=== PATIENT | male | born 1965 | race Caucasian/White ===

== ENCOUNTER 2019-07-14 07:41 | Day surgery (SDC) | payer OTHER ==
[~2019-07-14] VITALS: Ht 180.3 cm; Wt 74.3 kg
[~2019-07-14 07:41] MED LIST: BUPIVACAINE/PF-EPI 0.5% 1:200K ONE; ESCI10TA10 PO
[2019-07-14] MEDS ORDERED: LACTATED RINGERS 1,000 ML IV SCH (08:10)
[2019-07-14 08:12] VITALS: BP 116/71
[2019-07-14] MEDS ORDERED: CHLORHEXIDINE 15 ML UDC MM ONE (08:30)
[2019-07-14] MEDS ORDERED: MIDAZOLAM 1 MG/ML, 2ML ONE (09:19)
[2019-07-14] MEDS ORDERED: FENTANYL PF 100 MCG/2ML ONE ×3 (09:19→10:53)
[2019-07-14] MEDS ORDERED: ROCURONIUM 10 MG/ML,10ML ONE (09:20)
[2019-07-14] MEDS ORDERED: SUCCINYLCHOLINE 20 MG/ML, 10ML ONE (09:20)
[2019-07-14] MEDS ORDERED: PROMETHAZINE 25 MG/ML, 1ML IV PRN (10:00)
[2019-07-14] MEDS ORDERED: MIDAZOLAM 1 MG/ML, 2ML IV PRN (10:00)
[2019-07-14] MEDS ORDERED: ACETAMINOPHEN 325 MG TABLET PO PRN (10:00)
[2019-07-14] MEDS ORDERED: DIAZEPAM 5 MG/ML, 2ML IVPush PRN (10:00)
[2019-07-14] MEDS ORDERED: MEPERIDINE/PF 25MG/ML,1ML IVPush PRN (10:00)
[2019-07-14] MEDS ORDERED: CEFAZOLIN 1,000 MG ONE (10:12)
[2019-07-14] MEDS ORDERED: PROPOFOL 10 MG/ML, 20ML ONE (10:12)
[2019-07-14] MEDS ORDERED: DEXAMETHASONE 4 MG/ML, 1ML ONE (10:12)
[2019-07-14] MEDS ORDERED: ONDANSETRON 2MG/ML, 2ML ONE (10:12)
[2019-07-14] MEDS ORDERED: MEPERIDINE/PF 25MG/ML,1ML ONE (10:32)
[2019-07-14] MEDS ORDERED: HYDROmorphone 1 MG/ML, 1ML INJ ONE (10:36)
[2019-07-14] MEDS ORDERED: ACETAMINOPHEN 650 MG/20.3 ML UDC ONE (10:36)
[2019-07-14] MEDS ORDERED: OXYcodone 5 MG/5 ML ORAL.SOL UDC ONE ×2 (10:36→10:53)
[2019-07-14] MEDS: OXYcodone 5 MG/5 ML ORAL.SOL UDC PO PRN ×2 (10:39→11:22)
[2019-07-14] MEDS: HYDROmorphone 2 MG/ML, 1ML IVPush PRN ×2 (10:41→10:51)
[2019-07-14] MEDS: FENTANYL PF 100 MCG/2ML IV PRN ×2 (10:58→11:15)
[2019-07-14] MEDS ORDERED: KETOROLAC 30 MG/1 ML ONE (12:13)
[2019-07-14] MEDS ORDERED: KETOROLAC 30 MG/1 ML IVPush ONE (12:30)
== END 2019-07-14 13:15 | disposition home or self-care (01) ==
LOC: OUT 07:41
PROVIDERS: ATTEND Orthopaedic Surgery
DX: S42.022K Displaced fracture of shaft of left clavicle, subsequent encounter for fracture with nonunion (principal); F32.9 Major depressive disorder, single episode, unspecified; Z88.0 Allergy status to penicillin; Z88.1 Allergy status to other antibiotic agents; X58.XXXD Exposure to other specified factors, subsequent encounter
CPT/HCPCS: 23480; 73000; C1713; C1762; J0330; J0690; J1100; J1170; J1885; J2175; J2250; J2405; J2704; J3010; J7120; 76000